=== PATIENT | female | born 1985 | race Caucasian/White ===

== ENCOUNTER 2019-10-03 11:40 | Inpatient (IN) | payer OTHER ==
[~2019-10-03 11:40] MED LIST: ELECTROLYTE-148 SOLN 1,000 ML IV ONE
[2019-10-03] MEDS ORDERED: ELECTROLYTE-148 SOLN 1,000 ML IV ONE ×2 (12:15)
[2019-10-03] MEDS ORDERED: ELECTROLYTE-148 SOLN 1,000 ML IV SCH (12:15)
[2019-10-03] MEDS ORDERED: CITRIC ACID/SODIUM CITRATE 30 ML UNIT-DOSE CUP PO ONE ×2 (12:15→14:04)
[2019-10-03 12:34] VITALS: BMI 39.4
[2019-10-03] MEDS ORDERED: OXYTOCIN 20 UNITS in 0.9% NS 40 UNIT/2,000 ML INFUS.BAG IV ONE (12:58)
[2019-10-03] MEDS ORDERED: morphine SULFATE/PF 0.5 MG/ML (2cc Syringe - QUVA) ONE (13:42)
[2019-10-03] MEDS ORDERED: ePHEDrine SULFATE 50 MG/1 ML AMPULE ONE (13:42)
[2019-10-03] MEDS ORDERED: PHENYLEPHRINE HCL 10 MG/1 ML SINGLE DOSE VIAL ONE (13:42)
[2019-10-03] MEDS ORDERED: PROPOFOL 20 ML ONE (13:44)
[2019-10-03] MEDS ORDERED: SUCCINYLCHOLINE CHLORIDE 200 MG/10 ML SYRINGE ONE (13:44)
--- NOTE | 2019-10-03 14:44 | HP ---
Past Medical History - Primary Care Physician PCP:: Jani Calvo - Admission Chief Complaint: 39 weeks, previous c/s , AMA, IDDM, breech History Source: Patient Limitations to Obtaining History: No Limitations - Past Medical History ...: 2 ...Para: 1 ...Term: 1 ...: 0 ...Spon : 0 ...Induced : 0 ...Multiple Gestation: 0 ...LMP: 01/05/19 ... 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 History of Recent Travel: No Home Medications - Allergies Allergies/Adverse Reactions: Allergies Allergy/AdvReac Type Severity Reaction Status Date / Time No Known Allergies Allergy Verified 10/03/19 11:56 Review of Systems - Review of Systems Constitutional: reports: No Symptoms Eyes: reports: No Symptoms HENT: reports: No Symptoms Neck: reports: No Symptoms Cardiovascular: reports: No Symptoms Respiratory: reports: No Symptoms Gastrointestinal: reports: No Symptoms Genitourinary: reports: No Symptoms Breasts: reports: No Symptoms Reported Musculoskeletal: reports: No Symptoms Integumentary: reports: No Symptoms Neurological: reports: No Symptoms Endocrine: reports: No Symptoms Hematology/Lymphatic: reports: No Symptoms Physical Exam - Maternity Vital Signs: Vital Signs Temperature 98.1 F 10/03/19 12:10 Pulse Rate 95 H 10/03/19 12:10 Respiratory Rate 18 10/03/19 12:10 Blood Pressure 118/75 10/03/19 12:10 O2 Sat by Pulse Oximetry (%) Constitutional: Yes: Well Nourished, No Distress, Calm Eyes: Yes: WNL, Conjunctiva Clear, EOM Intact HENT: Yes: WNL, Atraumatic, Normocephalic Neck: Yes: WNL, Supple, Trachea Midline Cardiovascular: Yes: WNL, Regular Rate and Rhythm Breast(s): Yes: WNL - Abdominal Exam/OB Fundal Height: 40 Number of Fetuses: Single Presentation: Breech Contractions: No Regularity: Irritability Intensity: Unaware Monitor Mode: External Heart Rate Location: [facility] Category: I Accelerations: Non-Uniform Decelerations: None - Vaginal Exam/OB Vaginal Bleediing: No Speculum Exam: No Dilatation (cm): closed Effacement (%): 0 Amniotic Membrane Status: Intact Presentation: Vertex/Position Station: -3 - Physical Exam Musculoskeletal: Yes: WNL Edema: Yes Edema: LLE: Trace, RLE: Trace Deep Tendon Reflex Grade: Normal +2 ...Motor Strength: WNL Psychiatric: Yes: WNL Hemorrhage Risk Assessment - Risk Factors Medium Risk Factors: Yes: Prior , uterine surgery,or multiple laparotomies, Hematocrit < 30% & other Risk Score: 2 Risk Level: High Risk Problem List - Problems (1) with 39 completed weeks gestation Code(s): Z3A.39 - 39 WEEKS GESTATION OF (2) Previous section complicating Code(s): O34.219 - MATERNAL CARE FOR UNSP TYPE SCAR FROM PREVIOUS DEL (3) Diabetes in Code(s): O24.919 - UNSP DIABETES MELLITUS IN , UNSPECIFIED TRIMESTER Qualifiers: Diabetes in type: gestational Gestational diabetes mellitus control: insulin-controlled (4) Previous section Code(s): Z98.891 - HISTORY OF UTERINE SCAR FROM PREVIOUS SURGERY (5) Breech presentation Code(s): O32.1XX0 - MATERNAL CARE FOR BREECH PRESENTATION, UNSP Assessment/Plan repeat c/s, risks discussed
[2019-10-03] MEDS ORDERED: OXYTOCIN 10 UNITS/ML VIAL ONE (14:45)
[2019-10-03] MEDS ORDERED: KETOROLAC TROMETHAMINE 30 MG/1 ML VIAL ONE (14:45)
[2019-10-03] MEDS ORDERED: ONDANSETRON 4 MG/2 ML VIAL IVPUSH PRN (15:12)
[2019-10-03] MEDS ORDERED: BENZOCAINE 20% 57 GM BOTTLE TP PRN (15:44)
[2019-10-03] MEDS ORDERED: oxyCODONE HCL 5 MG TABLET PO PRN ×2 (15:44)
[2019-10-03] MEDS ORDERED: IBUPROFEN 800 MG/8 ML IJ IVPB PRN (15:44)
[2019-10-03] MEDS ORDERED: WITCH HAZEL 50% (TUCKS) 40 PAD/JAR PAD TP PRN (15:44)
[2019-10-03] MEDS ORDERED: METHYLERGONOVINE MALEATE 0.2 MG/1 ML AMP IM PRN (15:44)
[2019-10-03] MEDS ORDERED: diphenhydrAMINE HCL 25 MG CAPSULE (FP) PO PRN (15:44)
[2019-10-03] MEDS ORDERED: BENZOCAINE 28 GM HEMORRHOIDAL OINTMENT PR PRN (15:44)
[2019-10-03] MEDS ORDERED: DEXTROSE 5%-LACTATED RINGERS 1,000 ML IV SCH (15:45)
--- NOTE | 2019-10-03 15:51 | OP ---
Operative Note - Note: Operative Date: 10/03/19 Operation: 39 weeks, previous c/s, IDDM,AMA, breech Findings: live baby boy 9/9, footling breech Surgeon: Jani Calvo Filling And Packing Supervisor: Tien Chandra Anesthesia: Spinal Specimens Removed: placenta Estimated Blood Loss (mls): 500 Drains & Tubes with Location: chavez Drains, Volume Out (mls): 75 Blood Volume Replaced (mls): 0 Fluid Volume Replaced (mls): 1,000 Operative Report Dictated: Yes
[2019-10-03] MEDS ORDERED: OXYTOCIN 20 UNITS in 0.9% NS 20 UNIT/1,000 ML INFUS.BAG IV SCH (16:00)
[2019-10-03] MEDS: OXYTOCIN 20 UNITS in 0.9% NS 20 UNIT/1,000 ML INFUS.BAG IV SCH ×2 (16:56→23:30)
[2019-10-03] MEDS ORDERED: CEFAZOLIN 1 GM/D5W 1 GM/50 ML BAG IVPB SCH (18:00)
--- NOTE | 2019-10-03 22:29 | OP ---
DATE OF OPERATION: 10/03/2019 PREOPERATIVE DIAGNOSIS: 39 weeks, previous section, advanced maternal age, and insulin dependent diabetes, in breech presentation. POSTOPERATIVE DIAGNOSIS: 39 weeks, previous section, advanced maternal age, and insulin dependent diabetes, in breech presentation. PROCEDURE: Repeat low segment transverse section. SURGEON: Jani Calvo M.D. SENIOR FINANCIAL ANALYST: Brandon Porras ESTIMATED BLOOD LOSS: 500 mL. FINDINGS: Live baby boy, double footling breech, Apgars 9 and 9. OPERATION: Patient was taken to operating room with adequate epidural anesthesia. Abdomen and perineum were prepped and draped. Pfannenstiel abdominal skin incision was made over the previous incision. Abdominal wall was cut layer by layer until the peritoneum was exposed and incised. Upon entering the abdominal cavity, there were several omental adhesions to the peritoneum which was lysed with a cautery. Hemostasis was established and then with the lower blade of the Gerber retractor in the pelvis, a low space uterine incision was made. Incision extended laterally with bandage scissors. Amniotic sac was entered, clear fluid. Baby was in double footling breech which was delivered by a breech without any difficulty. Placenta was delivered manually. Uterine cavity was cleared of all remaining tissue. Uterine incision was closed in 2 layers, the 1st layer with 0 Biosyn continuous suture, the 2nd layer with 0 Biosyn imbricating the 1st layer. Bladder flap was closed with 0 Biosyn continuous suture. Both tubes and ovaries were checked and were normal. No active bleeding was seen. All the lap, sponge, and instrument counts were correct. Peritoneum was closed with 0 Biosyn continuous suture. Muscles were brought together interrupted suture with 0 Biosyn. Fascia was closed with 0 Biosyn continuous sutures. Subcutaneous abdominal wall was closed with interrupted sutures 0 Biosyn, and the skin was closed with 3-0 Biosyn subcuticular continuous suture. The patient tolerated the procedure well and left the OR in good condition. JANI CALVO M.D. /[id number]
[2019-10-03] MEDS: CEFAZOLIN 1 GM/D5W 1 GM/50 ML BAG IVPB SCH (23:30)
[2019-10-04] MEDS: CEFAZOLIN 1 GM/D5W 1 GM/50 ML BAG IVPB SCH (06:11)
--- NOTE | 2019-10-04 06:58 | PN ---
Progress Note (short form) - Note Progress Note: pod 1 .s/p repeat c/s doing well, no c/o Last Vital Signs Temp Pulse Resp BP Pulse Ox 98.0 F 87 18 115/63 97 10/04/19 06:00 10/04/19 06:00 10/04/19 06:00 10/04/19 06:00 10/03/19 17:10 abdomen soft, no distension , no cva , incision dry, clean no excess vaginal bleeding no calf tenderness plan ambulate , cbc pain management Problem List - Problems (1) with 39 completed weeks gestation Code(s): Z3A.39 - 39 WEEKS GESTATION OF (2) Previous section complicating Code(s): O34.219 - MATERNAL CARE FOR UNSP TYPE SCAR FROM PREVIOUS DEL (3) Diabetes in Code(s): O24.919 - UNSP DIABETES MELLITUS IN , UNSPECIFIED TRIMESTER Qualifiers: Diabetes in type: gestational Gestational diabetes mellitus control: insulin-controlled (4) Previous section Code(s): Z98.891 - HISTORY OF UTERINE SCAR FROM PREVIOUS SURGERY (5) Breech presentation Code(s): O32.1XX0 - MATERNAL CARE FOR BREECH PRESENTATION, UNSP
[2019-10-04 08:53] LABS: BASO % 0.3 % (0-2.0); EOS % 0.3 % (0-4.5); HEMATOCRIT 21.7 % (32.4-45.2); LYMPH % 9.1 % (8-40); MCHC 29.7 g/dl (32.0-36.0); MEAN CELL VOLUME 60.1 fl (80-96); MEAN PLT VOLUME 9.7 fl (7.5-11.1); MONO % 5.1 % (3.8-10.2); NEUT % 85.2 % (42.8-82.8); PLATELET COUNT 156 K/MM3 (134-434); RBC 3.61 M/mm3 (3.60-5.2); RDW 18.1 % (11.6-15.6); WHITE BLOOD COUNT 18.4 K/mm3 (4.0-10.0)
[2019-10-04 09:03] LABS: MCH 17.8 pg (25.7-33.7)
[2019-10-04 09:05] LABS: HEMOGLOBIN 6.4 GM/dL (10.7-15.3)
[2019-10-04] MEDS: ENOXAPARIN NA (PORCINE) 40 MG/0.4 ML DISP.SYRIN SQ SCH (09:28)
--- NOTE | 2019-10-04 14:39 | PN ---
Progress Note (short form) - Note Progress Note: hb 6.4 ,asymptomatic, no dizziness , no headache, no excess vaginal bleeding ambulating well blood transfusion discussed , declined, wants to be observed Problem List - Problems (1) with 39 completed weeks gestation Code(s): Z3A.39 - 39 WEEKS GESTATION OF (2) Previous section complicating Code(s): O34.219 - MATERNAL CARE FOR UNSP TYPE SCAR FROM PREVIOUS DEL (3) Diabetes in Code(s): O24.919 - UNSP DIABETES MELLITUS IN , UNSPECIFIED TRIMESTER Qualifiers: Diabetes in type: gestational Gestational diabetes mellitus control: insulin-controlled (4) Previous section Code(s): Z98.891 - HISTORY OF UTERINE SCAR FROM PREVIOUS SURGERY (5) Breech presentation Code(s): O32.1XX0 - MATERNAL CARE FOR BREECH PRESENTATION, UNSP
[2019-10-04] MEDS: PRENATAL VITAMINS W/ FOLIC ACID TABLET (FP) PO SCH (14:57)
[2019-10-04] MEDS ORDERED: BISACODYL 10 MG SUPP.RECT PR PRN (15:44)
[2019-10-04] MEDS: IBUPROFEN 600 MG TABLET (FP) PO PRN ×2 (16:41→23:53)
[2019-10-04] MEDS: FERROUS SO4 325 MG TABLET (FP) PO SCH (16:42)
[2019-10-04] MEDS: ACETAMINOPHEN 325 MG TABLET (FP) PO PRN (16:42)
[2019-10-04] MEDS ORDERED: FERROUS SO4 325 MG TABLET (FP) PO SCH (17:30)
[2019-10-04] MEDS: SIMETHICONE 80 MG TAB.CHEW (FP) PO PRN (23:52)
[2019-10-05] MEDS: FERROUS SO4 325 MG TABLET (FP) PO SCH ×2 (07:47→16:59)
--- NOTE | 2019-10-05 09:35 | PN ---
Progress Note (short form) - Note Progress Note: pod2 ,no c/o , no dizziness , no headache or SOB, no active vaginal bleeding CBC, BMP 10/04/19 08:00 Last Vital Signs Temp Pulse Resp BP Pulse Ox 97.4 F L 92 H 14 136/83 97 10/05/19 07:25 10/05/19 07:25 10/05/19 07:25 10/05/19 07:25 10/04/19 17:55 abdomen soft, no distension, no cva, uterus firm lochia mild incision dry, clean no calf tenderness impression anemia , asymptomatic , VS stable ,wants to be observed plan iron, vit cbc in am Problem List - Problems (1) with 39 completed weeks gestation Code(s): Z3A.39 - 39 WEEKS GESTATION OF (2) Previous section complicating Code(s): O34.219 - MATERNAL CARE FOR UNSP TYPE SCAR FROM PREVIOUS DEL (3) Diabetes in Code(s): O24.919 - UNSP DIABETES MELLITUS IN , UNSPECIFIED TRIMESTER Qualifiers: Diabetes in type: gestational Gestational diabetes mellitus control: insulin-controlled (4) Previous section Code(s): Z98.891 - HISTORY OF UTERINE SCAR FROM PREVIOUS SURGERY (5) Breech presentation Code(s): O32.1XX0 - MATERNAL CARE FOR BREECH PRESENTATION, UNSP
[2019-10-05] MEDS: IBUPROFEN 600 MG TABLET (FP) PO PRN ×3 (09:48→23:23)
[2019-10-05] MEDS: PRENATAL VITAMINS W/ FOLIC ACID TABLET (FP) PO SCH (09:49)
[2019-10-05] MEDS: ACETAMINOPHEN 325 MG TABLET (FP) PO PRN ×3 (09:50→23:24)
[2019-10-05] MEDS: SIMETHICONE 80 MG TAB.CHEW (FP) PO PRN ×2 (09:52→16:07)
[2019-10-05] MEDS: ENOXAPARIN NA (PORCINE) 40 MG/0.4 ML DISP.SYRIN SQ SCH (09:53)
[2019-10-05] MEDS ORDERED: PRENATAL VITAMINS W/ FOLIC ACID TABLET (FP) PO SCH (10:00)
[2019-10-05] MEDS ORDERED: SENNOSIDES/DOCUSATE COMBO (SENNA PLUS) TABLET (UD) PO PRN (22:00)
[2019-10-06 07:57] LABS: BASO % 0.4 % (0-2.0); EOS % 2.3 % (0-4.5); HEMATOCRIT 23.4 % (32.4-45.2); LYMPH % 17.1 % (8-40); MCHC 30.1 g/dl (32.0-36.0); MEAN CELL VOLUME 61.1 fl (80-96); MEAN PLT VOLUME 8.8 fl (7.5-11.1); MONO % 4.5 % (3.8-10.2); NEUT % 75.7 % (42.8-82.8); PLATELET COUNT 200 K/MM3 (134-434); RBC 3.82 M/mm3 (3.60-5.2); RDW 18.9 % (11.6-15.6); WHITE BLOOD COUNT 12.6 K/mm3 (4.0-10.0)
[2019-10-06] MEDS: FERROUS SO4 325 MG TABLET (FP) PO SCH ×2 (08:03→17:19)
[2019-10-06 09:19] LABS: MCH 18.4 pg (25.7-33.7)
[2019-10-06] MEDS: ENOXAPARIN NA (PORCINE) 40 MG/0.4 ML DISP.SYRIN SQ SCH (09:58)
[2019-10-06] MEDS: PRENATAL VITAMINS W/ FOLIC ACID TABLET (FP) PO SCH (09:59)
[2019-10-06 11:43] LABS: ANISOCYTOSIS 2+; MACROCYTOSIS 0; PLATELET ESTIMATE NORMAL
[2019-10-06] MEDS: IBUPROFEN 600 MG TABLET (FP) PO PRN (12:53)
[2019-10-06] MEDS: ACETAMINOPHEN 325 MG TABLET (FP) PO PRN (12:54)
--- NOTE | 2019-10-06 22:10 | PN ---
Progress Note (short form) - Note Progress Note: pod 3 s/p repeat c/s, anemia ,asymptomatic CBC, BMP 10/06/19 07:25 Last Vital Signs Temp Pulse Resp BP Pulse Ox 98.4 F 90 20 138/83 97 10/06/19 20:55 10/06/19 20:55 10/06/19 20:55 10/06/19 20:55 10/04/19 17:55 abdomen soft, , no distension, BS are present incision dry, cleam no calf tenderness plan ambulate iron vit d/c home in am Problem List - Problems (1) with 39 completed weeks gestation Code(s): Z3A.39 - 39 WEEKS GESTATION OF (2) Previous section complicating Code(s): O34.219 - MATERNAL CARE FOR UNSP TYPE SCAR FROM PREVIOUS DEL (3) Diabetes in Code(s): O24.919 - UNSP DIABETES MELLITUS IN , UNSPECIFIED TRIMESTER Qualifiers: Diabetes in type: gestational Gestational diabetes mellitus control: insulin-controlled (4) Previous section Code(s): Z98.891 - HISTORY OF UTERINE SCAR FROM PREVIOUS SURGERY (5) Breech presentation Code(s): O32.1XX0 - MATERNAL CARE FOR BREECH PRESENTATION, UNSP
[2019-10-07] MEDS: IBUPROFEN 600 MG TABLET (FP) PO PRN ×2 (00:22→10:58)
[2019-10-07] MEDS: SIMETHICONE 80 MG TAB.CHEW (FP) PO PRN (00:22)
[2019-10-07] MEDS: ACETAMINOPHEN 325 MG TABLET (FP) PO PRN ×2 (00:23→10:57)
--- NOTE | 2019-10-07 05:52 | DS ---
Physical Exam-[employer] SPECIALIST Vital Signs: Vital Signs Temperature 98.4 F 10/06/19 20:55 Pulse Rate 90 10/06/19 20:55 Respiratory Rate 20 10/06/19 20:55 Blood Pressure 138/83 10/06/19 20:55 O2 Sat by Pulse Oximetry (%) 97 10/04/19 17:55 Constitutional: Yes: Well Nourished, No Distress, Calm Eyes: Yes: WNL, Conjunctiva Clear, EOM Intact HENT: Yes: WNL, Atraumatic, Normocephalic Neck: Yes: WNL, Supple, Trachea Midline Cardiovascular: Yes: WNL, Regular Rate and Rhythm Respiratory: Yes: WNL, Regular, CTA Bilaterally Gastrointestinal: Yes: WNL Renal/: Yes: WNL ....Post : Yes: Uterus firm, Uterus non-tender, Slight lochia rubra Breast(s): Yes: WNL Musculoskeletal: Yes: WNL Extremities: Yes: WNL Integumentary: Yes: WNL Wound/Incision: Yes: Clean/Dry, Well Approximated, Sutures Intact Neurological: Yes: WNL, Alert, Oriented ...Motor Strength: WNL Psychiatric: Yes: WNL, Alert, Oriented Labs: CBC, BMP 10/06/19 07:25 Delivery - Delivery Vaginal Delivery: Spontaneous Section: Repeat, Low Flap Transverse (no complication) Type of Anesthesia: Spinal Episiotomy/Laceration: None EBL (cc): 500 Delivery, Single - Stages of Labor Date of Delivery: 10/03/19 Time of Delivery: 14:57 Time Placenta Delivered: 14:58 Placenta: Yes: Expressed - Condition of Architectural Job Captain/Residential Advisor Present: Yes Name: Damaris Bajwa Gender: Male Weight: 8 lb 1 oz Total Hours ROM (Hrs/Mins): 0/2 - 1 Minute Total Score: 9 5 Minutes Total Score: 9 - Feeding Plan Initial Plan: Elected not to breastfeed exclusively throughout hospitalization Discharge Summary Reason For Visit: REPEAT Current Active Problems Breech presentation (Acute) Diabetes in (Acute) Diabetes in (Acute) with 39 completed weeks gestation (Acute) Previous section (Acute) Previous section complicating (Acute) Procedures: Principal: repeat LST c/s Other Procedures: none Hospital Course: uneventful Health Concerns: none Plan of Treatment: iron ,vit Goals: improve HB Condition: Good - Instructions Diet, Activity, Other Instructions: regular diet , no intercourse, follow up office 1 week, if pain, fever, heavy vaginal bleeding call md Referrals: Jani Calvo MD [Staff Physician] - Disposition: HOME - Home Medications Comprehensive Discharge Medication List: Ambulatory Orders Ibuprofen [Motrin -] 600 mg PO QID #28 tablet 10/06/19 Prescription Drug Monitoring Program (I-STOP) results: I-STOP reviewed and no issues identified
[2019-10-07] MEDS: FERROUS SO4 325 MG TABLET (FP) PO SCH (08:26)
[2019-10-07 08:40] VITALS: BP 137/85; PULSE 93; TEMP 98.5
[2019-10-07] MEDS: ENOXAPARIN NA (PORCINE) 40 MG/0.4 ML DISP.SYRIN SQ SCH (09:58)
[2019-10-07] MEDS: PRENATAL VITAMINS W/ FOLIC ACID TABLET (FP) PO SCH (09:58)
--- NOTE | 2019-10-09 13:43 | PATH ---
Surgical Pathology Report Patient Name: JO-ANN CRISTOBAL Med. Rec. 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 Specimen(s) Received PLACENTA Clinical History Previous , 39.1 weeks GDM- has not been taking insulin-diet controlled History of migraines, advanced maternal age Final Diagnosis PLACENTA, SECTION: 534 G THIRD TRIMESTER PLACENTA WITH TRIVASCULAR UMBILICAL CORD AND UNREMARKABLE PLACENTAL MEMBRANES. Electronically Signed Jannette Mata M.D. Gross Description The specimen is received fresh labeled placenta and comprised of two portions of placenta measuring 13.0 x 13.0 x 2.8 cm and 12.5 x 9.5 x 1.8 cm, weighing 534 gram. The larger portion has attached membranes and umbilical cord. The membranes are gallego, translucent with focal opacities and insert marginally. The umbilical cord measures 12.5 cm. in length and averages 1.0 cm. in diameter. The cord inserts eccentrically, 3 cm. to the nearest margin. No true knots or strictures are identified. Cut surface of the umbilical cord reveals 3 vessels. The surface is campuzano-blue with minimal fibrin deposition and appropriate caliber vessels. The maternal surface is red-brown with focal defects and mild calcifications. Sectioning reveals red-brown, spongy parenchyma. No lesions are identified. Training Representative sections are submitted in 4 cassettes as follows: 1-membrane roll and umbilical cord; 2-3-full thickness sections of placenta; 4-full thickness section of separately received portion of placenta. /10/04/2019 saudi10/04/2019
== END 2019-10-07 11:50 | disposition home or self-care (01) | DRG 788 ==
LOC: JLDR 11:40 → J3W 17:30
PROVIDERS: ADMIT Obstetrics & Gynecology; ATTEND Obstetrics & Gynecology
PROC: 10D00Z1 Extraction of Products of Conception, Low, Open Approach (ICD-10-PCS; principal; 2019-10-03)
DX: O32.8XX0 Maternal care for other malpresentation of fetus, not applicable or unspecified (principal); O34.219 Maternal care for unspecified type scar from previous cesarean delivery; O24.424 Gestational diabetes mellitus in childbirth, insulin controlled; Z3A.39 39 weeks gestation of pregnancy; Z37.0 Single live birth
CPT/HCPCS: 36415; 36600; 82803; 82962; 85025; 88307-TC